=== PATIENT | male | born 1935 | race Caucasian/White ===

== ENCOUNTER → 2021-03-19 | Outpatient (CLI) | payer OTHER ==
--- NOTE | 2021-03-19 15:19 | 2DMMODE ---
[place] [address] 2 D/M-MODE ECHOCARDIOGRAM Name: DARLEENGUTIERREZ Shea Room: [facility]#: [id number] Admission: 03/19/21 Attend Phys: Physician not on s Discharge: Date of : 33 Date of Service: 03/19/21 1519 Report #: [id number] THIS REPORT FOR: cc: FAM - No family physician/PCP FAM - No family physician/PCP Alec Griggs MD [facility] ~ APPROVED REPORT Study performed: 03/19/2021 13:18:13 EXAM: Comprehensive 2D, Doppler, and color-flow Echocardiogram Patient Location: Out-Patient BSA: 1.71 HR: 68 bpm BP: 140/78 mmHg Other Information Study Quality: Good Indications CAD 2D Dimensions IVSd: 8.82 (7-11mm) LVOT Diam: 20.50 (18-24mm) LVDd: 49.63 mm PWd: 8.54 (7-11mm) Ascending Ao: 28.21 (22-36mm) LVDs: 24.86 (25-40mm) Aortic Root: 28.06 mm Volumes Left Atrial Volume (Systole) LA ESV Index: 16.00 mL/m2 Aortic Valve AoV Peak Enrique.: 0.97 m/s AO Peak Gr.: 3.78 mmHg LVOT Max P.33 mmHg AO Mean Gr.: 1.66 mmHg LVOT Mean P.34 mmHg LVOT Max V: 0.76 m/s AO V2 VTI: 18.86 cm LVOT Mean V: 0.55 m/s SOPHIA (VTI): 3.30 cm2 LVOT V1 VTI: 18.85 cm AI Cotton: 1.74 m/s2 AI PHT: 550.99 [place] [address] 2 D/M-MODE ECHOCARDIOGRAM Name: GUTIERREZ MOREJON Room: [facility]#: [id number] Admission: 03/19/21 Attend Phys: Physician not on s Discharge: Date of : 33 Date of Service: 03/19/21 1519 Report #: [id number] Mitral Valve E/A Ratio: 0.53 MV Decel. Time: 339.80 ms MV E Max Enrique.: 0.38 m/s MV PHT: 98.54 ms MVA (PHT): 2.23 cm2 TDI E/Lateral E': 6.33 E/Medial E': 3.80 Medial E' Enrique.: 0.10 m/s Lateral E' Enrique.: 0.06 m/s Pulmonary Valve PV Peak Enrique.: 0.88 m/s PV Peak Gr.: 3.10 mmHg Tricuspid Valve RAP Estimate: 5.00 mmHg TR Peak Gr.: 20.34 mmHg RVSP: 25.34 mmHg PA Pressure: 25.34 mmHg Left Ventricle The left ventricle is normal size. There is a focal region of akinesis involving the distal to apical septum distal to apical anterior wall and apex. There is normal left ventricular wall thickness. Left ventricular systolic function is preserved. LVEF is 50-55%. Grade I - abnormal relaxation pattern. Right Ventricle The right ventricle is normal size. The right ventricular systolic function is normal. Atria The left atrium size is normal. The right atrium size is normal. Aortic Valve The aortic valve is normal in structure. Mild aortic regurgitation. There is no aortic valvular stenosis. Mitral Valve The mitral valve is normal in structure. Mild mitral regurgitation. No evidence of mitral valve stenosis. Tricuspid Valve The tricuspid valve is normal in structure. Mild tricuspid regurgitation[place] [address] 2 D/M-MODE ECHOCARDIOGRAM Name: GUTIERREZ MOREJON Room: [facility]#: [id number] Admission: 03/19/21 Attend Phys: Physician not on s Discharge: Date of : 33 Date of Service: 03/19/21 1519 Report #: [id number] Pulmonic Valve The pulmonary valve is normal in structure. There is no pulmonic valvular regurgitation. Great Vessels The aortic root is normal in size. IVC is normal in size and collapses >50% with inspiration. Pericardium There is no pericardial effusion. <Conclusion> The left ventricle is normal size. There is normal left ventricular wall thickness. Left ventricular systolic function is preserved. LVEF is 50-55%. Grade I - abnormal relaxation pattern. There is a focal region of akinesis involving the distal to apical septum distal to apical anterior wall and apex. Mild aortic regurgitation. Mild mitral regurgitation. Mild tricuspid regurgitation. No pulmonary hypertension. IVC is normal in size and collapses >50% with inspiration. <ELECTRONICALLY SIGNED> By: Alec Griggs MD, FACC 03/19/21 1519 1519 1519 Alec Griggs MD, FACC /INF
== END ==
LOC: M.CRD 13:00
DX: I08.3 Combined rheumatic disorders of mitral, aortic and tricuspid valves (principal); I25.10 Atherosclerotic heart disease of native coronary artery without angina pectoris